=== PATIENT | male | born 1980 | race Caucasian/White ===

== ENCOUNTER 2022-02-24 08:38 | Outpatient (CLI) | payer BC, SELFPAY ==
[2022-02-24 14:14] LABS: Cholesterol* 262 mg/dL (90-199); Glucose* 89 mg/dL (60-115)
[2022-02-24 14:15] LABS: HDL Cholesterol* 37 mg/dL (>=40); LDL Cholesterol Calculated 187 mg/dL (<100); Triglycerides* 189 mg/dL (40-149)
== END 2022-02-24 08:39 | disposition home or self-care (01) ==
PROVIDERS: PCP Physician Assistant Medical; Visit Provider Physician Assistant Medical
DX: Z00.00 Encounter for general adult medical examination without abnormal findings (principal); E78.5 Hyperlipidemia, unspecified; Z13.1 Encounter for screening for diabetes mellitus
CPT/HCPCS: 80061; 82947